=== PATIENT | female | born 2005 ===

== ENCOUNTER 2024-09-27 20:56 | Emergency (ER) | payer SELFPAY ==
--- NOTE | ~2024-09-27 | CT_ITS ---
CLINICAL HISTORY: trauma CT head without contrast Comparison: None Findings: No intra-axial mass, midline shift, hydrocephalus, or acute hemorrhage. No significant atrophy-like change or white matter disease. Mucosal thickening in bilateral ethmoid air cells and right maxillary sinus. Left maxillary sinus mucosal thickening in mucous retention cyst/polyp. The orbits are unremarkable. There is no acute fracture. IMPRESSION: 1. No acute intracranial findings. This document has been electronically signed by: Filomena Ramirez MD on 09/27/2024 22:38:23
--- NOTE | 2024-09-27 21:05 | ECG_ITS ---
Test Reason : SEIZURE Blood Pressure : */* mmHG Vent. Rate : 94 BPM Atrial Rate : 94 BPM P-R Int : 138 ms QRS Dur : 80 ms QT Int : 360 ms P-R-T Axes : 70 24 19 degrees QTcB Int : 450 ms Normal sinus rhythm Normal ECG No previous ECGs available Referred By: Makeda Wing Electronically Signed By: NERIS SHIELDS MD
[2024-09-27] MEDS: Midazolam HCl 5 MG/ML VIAL IM (21:10)
[2024-09-27 21:17] LABS: MANUAL DIFF FLAG NO
[2024-09-27 21:19] LABS: VBG Base Excess 3.4 mmol/L; VBG HCO3 29 mmol/L (22-26); VBG pCO2 48 mmHg; VBG pH 7.38 (7.32-7.43); VBG pO2 83 mmHg
[2024-09-27 21:21] LABS: Venous Blood Gas Refer to POC result
[2024-09-27 21:23] LABS: Glucose, Whole Blood 101 mg/dL (60-115)
[2024-09-27 21:36] LABS: Lactic Acid 1.8 mmol/L (0.5-2.0)
[2024-09-27 21:38] LABS: Acetaminophen LAB < 3 mcg/mL (<30); Salicylate < 5.0 mg/dL (15-30)
[2024-09-27 21:40] VITALS: BMI 25.0
[2024-09-27 21:43] VITALS: BP 101/76; PULSE 95; RESP 18; O2SAT 98
[2024-09-27 21:44] LABS: Alanine Aminotransferase 22 U/L (0-31); Albumin Level 4.6 g/dL (3.5-5.0); Alkaline Phosphatase 74 U/L (39-117); Anion Gap 14 (12-20); Aspartate Amino Transferase 29 U/L (5-31); Bilirubin Total 0.2 mg/dL (0.0-1.0); Blood Urea Nitrogen 10 mg/dL (9-16); Calcium 9.1 mg/dL (8.4-10.2); Carbon Dioxide 25 mmol/L (22-29); Chloride 107 mmol/L (96-108); Creatinine Clr Calc Pharmacy 99.6; Estimated Glomerular Filt Rate > 60; Ethanol 398 mg/dL; Glucose Random 101 mg/dL (60-115); Potassium 3.7 mmol/L (3.3-5.1); Sodium 142 mmol/L (135-145); Total Protein 7.9 g/dL (6.5-8.0)
--- NOTE | 2024-09-27 21:45 | PC.NURSE ---
Pt arrived via EMS, this nurse called to the electronic data interchange specialist room for pt seizing. On arrival pt was verbal and disoriented. Pt appears to be under the influence. Alcohol smell noted. Pt brought to the bedside where Versed was administered IM as ordered per provider. Pt tolerated well. 18G IV line placed on the left ac and 20G IV line placed on the R FA. Pt tolerated well. Pt oriented to place as pt continually asked where she is. At this time pt is known as Genoveva Erwin and refuses to provide her name stating she does not want to be found and will not elaborate when asked about her identity. Pt states call me K . Pt is unable to provide a urine sample and decline straight cath. Pt states you are not touching my private . MLP made aware.
[2024-09-27 21:46] LABS: Basophils Percent Auto 0.4 % (0-2); Eosinophils Absolute Auto 0.4 X10*3/uL (0.0-0.4); Eosinophils Percent Auto 7.3 % (0-4); Hematocrit 39.7 % (37.0-47.0); Hemoglobin 12.6 g/dl (12.0-16.0); Imm Gran Abs Auto 0.01 X10*3/uL (0.00-0.03); Imm Gran Pct Auto 0.2 % (0.0-0.4); Lymphocytes Absolute Auto 2.9 X10*3/uL (1.2-4.9); Lymphocytes Percent Auto 53.3 % (20-40); Mean Corpuscular HGB Conc 31.7 g/dl (31.0-35.0); Mean Corpuscular Hemoglobin 25.1 pg (27.0-33.0); Mean Corpuscular Volume 79.1 fL (80.0-98.0); Mean Platelet Volume 9.5 fL (9.4-12.3); Monocytes Absolute Auto 0.5 X10*3/uL (0.1-1.2); Monocytes Percent Auto 8.4 % (2-11); Neutrophils Absolute Auto 1.7 x10*3/uL (2.0-8.3); Neutrophils Percent Auto 30.4 % (45-73); Platelet Count 375 X10*3/uL (160-400); Red Blood Count 5.02 X10*6/uL (4.20-5.50); Red Cell Distribution Width 14.5 % (11.0-16.0); White Blood Count 5.5 X10*3/uL (4.8-10.8)
[2024-09-27 21:47] LABS: HCG Quantitative < 2 mIU/mL
[2024-09-27 22:00] LABS: Influenza A PCR NEGATIVE (Negative); Influenza B PCR NEGATIVE (Negative); Resp Syncy Virus RNA Qual PCR NEGATIVE (Negative); SARS COV2 PCR INHOUSE NEGATIVE (Negative)
[2024-09-27 22:10] VITALS: BP 92/49; PULSE 88; RESP 17; O2SAT 96
[2024-09-27 22:17] LABS: Ammonia 39 umol/L (13-55)
[2024-09-27 22:31] VITALS: TEMP 35.9
--- NOTE | 2024-09-27 22:40 | PC.NURSE ---
Pt unable to supply urine sample. Straight cath done per provider with approx 175 mls of clear urine. Urine sample sent to the lab. Pt tolerated well.
[2024-09-27 22:53] LABS: Appearance Urine Clear; Color Urine Yellow; Glucose Urine UA Negative (Negative); Leukocyte Esterase Urine Negative (Negative); Nitrite Urine Negative (Negative); Specific Gravity - Urine <= 1.005 (1.005-1.025); Urine Blood Negative (Negative); Urine Ketones Negative (Negative); Urine Protein Negative (Neg-Trace)
[2024-09-27 23:02] LABS: Amphetamine Screen Urine Not Detected (Not Detect); Barbiturates, Urine Not Detected (Not Detect); Benzodiazepines Screen Urine POSITIVE (Not Detect); Buprenorphine Scr Not Detected (Not Detect); Cannabinoid Screen Urine POSITIVE (Not Detect); Cocaine Screen Urine Not Detected (Not Detect); Fentanyl, urine Not Detected (Not Detect); Methadone Screen, Urine Not Detected (Not Detect); Opiate Screen Urine Not Detected (Not Detect); Oxycodone Screen Urine Not Detected (Not Detect); Phencyclidine Screen Urine Not Detected (Not Detect)
--- NOTE | 2024-09-27 23:22 | ED.GENADULT ---
HPI - General Adult General Chief complaint: Seizure Stated complaint: etoh, possible seizures, head and neck pain Time Seen by Provider: 09/27/24 21:10 Source: EMS Limitations: other (Intoxicated) History of Present Illness ED Provider: Makeda Wing PA-C HPI narrative: 19-year-old unknown female, presents intoxicated. Unknown who called EMS for assistance, but there was concern the patient was having a seizure. Patient fell to the ground in the presence of EMS, having ?seizure-like activity?, however was verbal throughout the episode. History limited as patient not forthcoming about details, she will not give us her full name. Related Data Allergies Allergy/AdvReac Type Severity Reaction Status Date / Time Unable to Assess Allergy Verified 09/27/24 21:43 Review of Systems Review of Systems: Unable to obtain secondary to intoxication and noncooperation by the patient Yes all other systems are reviewed and are negative [facility] Past Medical History Attestation statement: The following information was validated with the patient. Social History Social History Do you have a plan to hurt others: No Plan Physical Exam ED Vital Signs: Vital Signs - 24 hr 09/27/24 21:43 09/27/24 22:10 09/27/24 22:31 Temperature 96.6 F L Pulse Rate 95 88 Respiratory Rate 18 17 Blood Pressure 101/76 92/49 L Pulse Oximetry 98 96 Oxygen Delivery Method Room Air Room Air 09/28/24 00:21 09/28/24 03:38 09/28/24 06:40 Temperature 96.4 F L 97.5 F Pulse Rate 80 80 75 Respiratory Rate 16 15 15 Blood Pressure 95/59 L 107/80 104/78 Pulse Oximetry 94 95 Oxygen Delivery Method Room Air Room Air BMI result Body Mass Index 25.0 Const Other: Awake, appears intoxicated, no obvious sign of head trauma on exam Orientation/consciousness: oriented to person HENMT Other: Alcohol halitosis Resp Effort & Inspection: normal respiratory effort Cardio Other: Normal peripheral perfusion Skin Other: Warm dry no rash Neuro Other: Unsteady gait, seems to know who she has, again clearly intoxicated General: oriented to person, no focal motor deficits and CN's II-XI intact bilaterally Psych Other: Intoxicated Course Course Course Narrative: 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 And her lactic was Time: 04:16 Date: 09/28/24 Provider: TORIBIO Haji Patient in physician observation for psychiatric evaluation.? No acute events reported overnight. No current complaints. VS stable.? Patient is in bed search status/pending CARE team evaluation. Will continue to monitor. not elevated Reevaluation(s) Reevaluation #1: patient awake, alert, oriented and steady on her feet. She is refusing to tell her name because she does not want to be found. She has a court date in is insisting on leaving the emergency department. She is declining any need for resources or evaluation. She is now clinically sober and does not want in the emergency department. She eloped from the ER prior to signing any paperwork. physician observation discontinued at this time Time: 08:56 Medications Administered Discontinued Medications Generic Name Dose Route Start Last Admin Trade Name Freq PRN Reason Stop Dose Admin Midazolam HCl 5 mg 09/27/24 21:07 09/27/24 21:10 Midazolam Hcl 5 Mg/Ml Vial IM 09/27/24 21:08 5 mg ONCE ONE Administration Medical Decision Making Medical Decision Making MDM Narrative: 19-year-old unknown female, presents intoxicated. Unknown who called EMS for assistance, but there was concern the patient was having a seizure. Patient fell to the ground in the presence of EMS, having ?seizure-like activity?, however was verbal throughout the episode. History limited as patient not forthcoming about details, she will not give us her full name. Unknown what chronic issues the patient has History: Per EMS I have considered the following differential diagnoses: SI, HI, drug/alcohol intoxication, decompensated psychiatric illness, toxidrome, seizure, intracranial hemorrhage Plan: We will be screening broad labs, unclear what is medically happening with the patient. It is clear that she is intoxicated, she could also be decompensated with a psychiatric illness. There was collapse, she could have struck her head and there is concern for seizure activity, thus far we have not observed any objective seizure activity. We will be scanning her head. She was given Versed on arrival. I have independently reviewed the following tests: Labs: No leukocytosis, not anemic, no electrolyte abnormality, lactic of 1.8, not , ethanol 398, U tox positive for benzos, marijuana, viral panel negative EKG: Normal sinus rhythm, rate of 94, no ischemic changes no ectopy QTC 450 CT brain:Findings: No intra-axial mass, midline shift, hydrocephalus, or acute hemorrhage. No significant atrophy-like change or white matter disease. Mucosal thickening in bilateral ethmoid air cells and right maxillary sinus. Left maxillary sinus mucosal thickening in mucous retention cyst/polyp. The orbits are unremarkable. There is no acute fracture. IMPRESSION: 1. No acute intracranial findings. Lab Data 09/27/24 21:11 09/27/24 21:11 Labs: Lab Results 09/27/24 09/27/24 09/27/24 Range/Units 21:10 21:11 21:16 WBC 5.5 (4.8-10.8) X10*3/uL RBC 5.02 (4.20-5.50) X10*6/uL Hgb 12.6 (12.0-16.0) g/dl Hct 39.7 (37.0-47.0) % MCV 79.1 L (80.0-98.0) fL MCH 25.1 L (27.0-33.0) pg MCHC 31.7 (31.0-35.0) g/dl RDW 14.5 (11.0-16.0) % Plt Count 375 (160-400) X10*3/uL MPV 9.5 (9.4-12.3) fL Immature Gran % (Auto) 0.2 (0.0-0.4) % Neut % (Auto) 30.4 L (45-73) % Lymph % (Auto) 53.3 H (20-40) % [place] % (Auto) 8.4 (2-11) % Eos % (Auto) 7.3 H (0-4) % Baso % (Auto) 0.4 (0-2) % Lymph # (Auto) 2.9 (1.2-4.9) X10*3/uL [place] # (Auto) 0.5 (0.1-1.2) X10*3/uL Eos # (Auto) 0.4 (0.0-0.4) X10*3/uL Baso # (Auto) 0.0 (0.0-0.2) X10*3/uL Abs Immat Gran (auto) 0.01 (0.00-0.03) X10*3/uL Absolute Neuts (auto) 1.7 L (2.0-8.3) x10*3/uL Absolute Nucleated RBC 0.000 (0.0-0.012) X10*3/uL Nucleated RBC % (auto) 0.0 (0.0-0.2) /100WBC Hold Blue Top SEE NOTE VBG pH 7.38 (7.32-7.43) VBG pCO2 48 mmHg VBG pO2 83 mmHg VBG HCO3 29 H (22-26) mmol/L VBG O2 Saturation 96.0 % VBG Base Excess 3.4 mmol/L Sodium 142 (135-145) mmol/L Potassium 3.7 (3.3-5.1) mmol/L Chloride 107 (96-108) mmol/L Carbon Dioxide 25 (22-29) mmol/L Anion Gap 14 (12-20) BUN 10 (9-16) mg/dL Creatinine 0.81 (0.5-1.4) mg/dL Estim Creat Clear Calc 99.6 Estimated GFR > 60 POC Glucose (60-115) mg/dL Random Glucose 101 (60-115) mg/dL Lactic Acid 1.8 (0.5-2.0) mmol/L Calcium 9.1 (8.4-10.2) mg/dL Magnesium 2.0 (1.6-2.6) mg/dL Total Bilirubin 0.2 (0.0-1.0) mg/dL AST 29 (5-31) U/L ALT 22 (0-31) U/L Alkaline Phosphatase 74 (39-117) U/L Ammonia 39 (13-55) umol/L Total Protein 7.9 (6.5-8.0) g/dL Albumin 4.6 (3.5-5.0) g/dL Beta HCG, Quant < 2 mIU/mL Hold Red Top See Note Urine Color Urine Appearance Urine pH (5.0-9.0) Ur Specific [place] (1.005-1.025) Urine Protein (Neg-Trace) mg/dL Urine Glucose (UA) (Negative) mg/dL Urine Ketones (Negative) mg/dL Urine Blood (Negative) Urine Nitrite (Negative) Ur Leukocyte Esterase (Negative) Salicylates < 5.0 L (15-30) mg/dL Urine Opiates Screen (Not Detect) Ur Buprenorphine Scrn (Not Detect) ng/mL Ur Oxycodone Screen (Not Detect) ng/mL Urine Methadone Screen (Not Detect) ng/mL Urine Fentanyl Screen (Not Detect) Acetaminophen < 3 (<30) mcg/mL Ur Barbiturates Screen (Not Detect) Ur Phencyclidine Scrn (Not Detect) Ur Amphetamines Screen (Not Detect) U Benzodiazepines Scrn (Not Detect) Urine Cocaine Screen (Not Detect) U Marijuana (THC) Screen (Not Detect) Ethyl Alcohol 398 H* mg/dL Influenza Type A (PCR) NEGATIVE (Negative) Influenza Type B (PCR) NEGATIVE (Negative) RSV RNA Qual (PCR) NEGATIVE (Negative) SARS-CoV-2 RNA (RT-PCR) NEGATIVE (Negative) 09/27/24 09/27/24 Range/Units 21:19 22:45 WBC (4.8-10.8) X10*3/uL RBC (4.20-5.50) X10*6/uL Hgb (12.0-16.0) g/dl Hct (37.0-47.0) % MCV (80.0-98.0) fL MCH (27.0-33.0) pg MCHC (31.0-35.0) g/dl RDW (11.0-16.0) % Plt Count (160-400) X10*3/uL MPV (9.4-12.3) fL Immature Gran % (Auto) (0.0-0.4) % Neut % (Auto) (45-73) % Lymph % (Auto) (20-40) % [place] % (Auto) (2-11) % Eos % (Auto) (0-4) % Baso % (Auto) (0-2) % Lymph # (Auto) (1.2-4.9) X10*3/uL [place] # (Auto) (0.1-1.2) X10*3/uL Eos # (Auto) (0.0-0.4) X10*3/uL Baso # (Auto) (0.0-0.2) X10*3/uL Abs Immat Gran (auto) (0.00-0.03) X10*3/uL Absolute Neuts (auto) (2.0-8.3) x10*3/uL Absolute Nucleated RBC (0.0-0.012) X10*3/uL Nucleated RBC % (auto) (0.0-0.2) /100WBC Hold Blue Top VBG pH (7.32-7.43) VBG pCO2 mmHg VBG pO2 mmHg VBG HCO3 (22-26) mmol/L VBG O2 Saturation % VBG Base Excess mmol/L Sodium (135-145) mmol/L Potassium (3.3-5.1) mmol/L Chloride (96-108) mmol/L Carbon Dioxide (22-29) mmol/L Anion Gap (12-20) BUN (9-16) mg/dL Creatinine (0.5-1.4) mg/dL Estim Creat Clear Calc Estimated GFR POC Glucose 101 (60-115) mg/dL Random Glucose (60-115) mg/dL Lactic Acid (0.5-2.0) mmol/L Calcium (8.4-10.2) mg/dL Magnesium (1.6-2.6) mg/dL Total Bilirubin (0.0-1.0) mg/dL AST (5-31) U/L ALT (0-31) U/L Alkaline Phosphatase (39-117) U/L Ammonia (13-55) umol/L Total Protein (6.5-8.0) g/dL Albumin (3.5-5.0) g/dL Beta HCG, Quant mIU/mL Hold Red Top Urine Color Yellow Urine Appearance Clear Urine pH 6.0 (5.0-9.0) Ur Specific [place] <= 1.005 (1.005-1.025) Urine Protein Negative (Neg-Trace) mg/dL Urine Glucose (UA) Negative (Negative) mg/dL Urine Ketones Negative (Negative) mg/dL Urine Blood Negative (Negative) Urine Nitrite Negative (Negative) Ur Leukocyte Esterase Negative (Negative) Salicylates (15-30) mg/dL Urine Opiates Screen Not Detected (Not Detect) Ur Buprenorphine Scrn Not Detected (Not Detect) ng/mL Ur Oxycodone Screen Not Detected (Not Detect) ng/mL Urine Methadone Screen Not Detected (Not Detect) ng/mL Urine Fentanyl Screen Not Detected (Not Detect) Acetaminophen (<30) mcg/mL Ur Barbiturates Screen Not Detected (Not Detect) Ur Phencyclidine Scrn Not Detected (Not Detect) Ur Amphetamines Screen Not Detected (Not Detect) U Benzodiazepines Scrn POSITIVE H (Not Detect) Urine Cocaine Screen Not Detected (Not Detect) U Marijuana (THC) Screen POSITIVE H (Not Detect) Ethyl Alcohol mg/dL Influenza Type A (PCR) (Negative) Influenza Type B (PCR) (Negative) RSV RNA Qual (PCR) (Negative) SARS-CoV-2 RNA (RT-PCR) (Negative) Discharge Plan Discharge Clinical Impression: Alcohol intoxication Patient Disposition: Elopement
[2024-09-28 00:21] VITALS: BP 95/59; PULSE 80; RESP 16; TEMP 35.8; O2SAT 94
[2024-09-28 03:38] VITALS: BP 107/80; PULSE 80; RESP 15; TEMP 36.4; O2SAT 95
[2024-09-28 06:40] VITALS: BP 104/78; PULSE 75; RESP 15
--- NOTE | 2024-09-28 07:22 | PC.NURSE ---
pt currently sleeping, seed analyst intact- nsr, rr equal/non labored, per report patient refusing to tell staff her name, clinical coordinator went through belongings, there is no ID in belongings. call reynoso within reach, plan of care ongoing
--- NOTE | 2024-09-28 09:03 | PC.NURSE ---
patient woke, continued to refuse to give name/, pt used bathroom and stated she was leaving, as she needed to go to court, patient was dressed at the door of the ED, security was told to not allow her to leave. there was an IV catheter on the floor in room 5, this nurse spoke with the provider- Dr. Charles and Lizy and they decided to allow the patient to Elope, pt went across the street and got on the bus.
[2024-09-28 09:07] VITALS: BP 104/78; PULSE 75; RESP 15; TEMP -17.7; TEMP 0
== END 2024-09-28 09:27 | disposition left against medical advice (07) ==
LOC: HO.ED 09-28 09:33
PROVIDERS: Physician Assistant Medical; Emergency Provider Emergency Medicine
DX: F10.920 Alcohol use, unspecified with intoxication, uncomplicated (principal); Y90.8 Blood alcohol level of 240 mg/100 ml or more; Z03.818 Encounter for observation for suspected exposure to other biological agents ruled out
CPT/HCPCS: 0241U; 36415; 70450; 80053; 80143; 80179; 80307; 81003; 82140; 82803; 82947; 83605; 83735; 84702; 85025; 87040; 93005; 96372; 99285; J2250

== ENCOUNTER → 2024-09-27 21:05 | Outpatient (BNV) | payer SELFPAY | PROVIDERS: Emergency Provider Emergency Medicine; Visit Provider Internal Medicine Cardiovascular Disease | DX: R56.9 Unspecified convulsions (principal) | CPT/HCPCS: 93010 ==

== ENCOUNTER → 2024-09-27 21:06 | Outpatient (BNV) | payer SELFPAY | PROVIDERS: Emergency Provider Emergency Medicine; Visit Provider Specialist | DX: S09.90XA Unspecified injury of head, initial encounter (principal) | CPT/HCPCS: 70450 ==